=== PATIENT | male | born 2000 | race Two or more races ===

== ENCOUNTER 2024-03-27 16:11 | Outpatient (AMB) | payer OTHER, SELFPAY ==
[2024-03-27 16:13] VITALS: BP 96/60; PULSE 76; O2SAT 97; BMI 21.3
--- NOTE | 2024-03-27 16:13 | HO.NEPHOV ---
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 He has had this for few months. No nausea or vomiting. No diarrhea or constipation. No polyuria polydipsia no hematuria. PFSH Family History (Updated 03/27/24 @ 16:16 by CIELO Huynh) Maternal Grandmother Acute leukemia Social History (Updated 03/27/24 @ 16:16 by CIELO Huynh) Patient Tobacco Use Status: Never used Tobacco Use of substances other than those prescribed or required for medical reasons: No Physical Exam Vital Signs: Last Vital Signs Pulse 76 03/27/24 16:13 BP 96/60 03/27/24 16:13 Pulse Ox 97 03/27/24 16:13 Oxygen Delivery Method Room Air 03/27/24 16:13 BMI result Body Mass Index 21.3 Const General: comfortable Nutritional Appearance: well nourished Orientation/consciousness: patient oriented x3 HEENT Head: No normal to inspection Mouth: moist mucous membranes Neck Neck: Yes supple and Yes no JVD Resp Auscultation: clear to auscultation bilaterally, no rales and rub present Cardio Jugular venous distension: no JVD Palpation: no palpable S3 and no palpable S4 Heart sounds: no rubs GI Palpation (GI): Soft to palpation and nontender Percussion: No Fluid wave present General: Yes no CVA tenderness Back/Spine/Pelvis Back: no CVA tenderness Skin General skin exam: no rashes or lesions noted Neuro General: patient oriented x3 Extrem General: Yes no pedal edema and No clubbing Results Reviewed Results Reviewed: Urinalysis showed specific gravity 1.029 no blood or protein. Nephrology Results: No Data to Display Assessment & Plan Assessment & Plan (1) Left sided abdominal pain: Code(s): R10.9 - Unspecified abdominal pain Category: Medical Plan Young healthy male with left-sided abdominal pain. Exam was unremarkable. Urinalysis was benign except for elevated specific gravity. We will obtain renal ultrasonogram to assess the kidneys. Check renal panel and urine protein creatinine ratio. Orders: Orders US renal BI Today R10.9 - Unspecified abdominal pain UA and rflx microscopic 2 Weeks R10.9 - Unspecified abdominal pain Creatinine Urine 2 Weeks R10.9 - Unspecified abdominal pain Total Protein Urine Random 2 Weeks R10.9 - Unspecified abdominal pain Comprehensive Met. Panel 2 Weeks R10.9 - Unspecified abdominal pain Coding Level of Care Code New Pt Level 3 (99968) Diagnoses Left sided abdominal pain R10.9
== END 2024-03-27 16:42 | disposition home or self-care (01) ==
PROVIDERS: PCP Nurse Practitioner Family; Visit Provider Internal Medicine Hypertension Specialist
DX: R10.9 Unspecified abdominal pain (principal)
CPT/HCPCS: 99203

== ENCOUNTER → 2024-03-27 16:11 | Outpatient (BNVA) | payer OTHER, SELFPAY | PROVIDERS: PCP Nurse Practitioner Family; Visit Provider Internal Medicine Hypertension Specialist | DX: R10.9 Unspecified abdominal pain (principal) | CPT/HCPCS: 99202 ==

== ENCOUNTER 2024-04-12 11:33 | Outpatient (REF) | payer OTHER, SELFPAY ==
--- NOTE | ~2024-04-12 | US_ITS ---
EXAMINATION: US RETROPERITONEAL LIMITED (RENAL ONLY) CLINICAL INFORMATION: Unspecified abdominal pain. COMPARISON: None available. TECHNIQUE: Real-time imaging of the kidneys. Limited visualization due to bowel gas. FINDINGS: RIGHT KIDNEY: 10.1 x 6.0 x 5.4 cm (SAG x AP x TRV). No hydronephrosis. No renal calculi. Renal cortical thickness is normal. Limited visualization. LEFT KIDNEY: 10.1 x 4.3 x 4.7 cm (SAG x AP x TRV). No hydronephrosis. No renal calculi. Renal cortical thickness is normal. Limited visualization. US/US renal BI IMPRESSION: No hydronephrosis. No renal calculi. Renal cortical thickness is normal. Limited visualization.
== END 2024-04-12 11:34 | disposition home or self-care (01) ==
LOC: HO.US 11:33
PROVIDERS: PCP Nurse Practitioner Family; Visit Provider Internal Medicine Hypertension Specialist
DX: R10.9 Unspecified abdominal pain (principal)
CPT/HCPCS: 76775

== ENCOUNTER 2024-05-03 10:09 | Outpatient (AMB) | payer OTHER, SELFPAY ==
--- NOTE | 2024-05-03 10:14 | HO.NEPHOV_ITS ---
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 He has had this for few months. No nausea or vomiting. No diarrhea or constipation. No polyuria polydipsia no hematuria. 05/03/2024. Underwent renal ultrasonogram which was unremarkable. Did not undergo blood or urine tests. He continues to have vague abdominal symptoms but nothing specific PFSH Family History Maternal Grandmother Acute leukemia Social History Patient Tobacco Use Status: Never used Tobacco Physical Exam Vital Signs: Last Vital Signs Pulse 74 05/03/24 10:15 BP 100/60 05/03/24 10:15 Pulse Ox 98 05/03/24 10:15 Oxygen Delivery Method Room Air 05/03/24 10:15 BMI result Body Mass Index 21.0 Results Reviewed Results Reviewed: Renal ultrasonogram normal Nephrology Results: Renal US 04/12/24 Assessment & Plan Assessment & Plan (1) Left sided abdominal pain: Code(s): R10.9 - Unspecified abdominal pain Category: Medical Plan Young healthy male with left-sided abdominal pain. Exam was unremarkable. Urinalysis was benign except for elevated specific gravity. Renal ultrasonogram normal Check renal panel and urine protein creatinine ratio. Reordered If this is normal I will discharge him Orders: Orders Comprehensive Met. Panel Today R10.9 - Unspecified abdominal pain Creatinine Urine Today R10.9 - Unspecified abdominal pain UA and rflx microscopic Today R10.9 - Unspecified abdominal pain Total Protein Urine Random Today R10.9 - Unspecified abdominal pain Coding Level of Care Code Est Pt Level 3 (66978) Diagnoses Left sided abdominal pain R10.9
[2024-05-03 10:15] VITALS: BP 100/60; PULSE 74; O2SAT 98; BMI 21.0
== END 2024-05-03 10:31 | disposition home or self-care (01) ==
PROVIDERS: PCP Nurse Practitioner Family; Visit Provider Internal Medicine Hypertension Specialist
DX: R10.9 Unspecified abdominal pain (principal)
CPT/HCPCS: 99213

== ENCOUNTER → 2024-05-03 10:09 | Outpatient (BNVA) | payer OTHER, SELFPAY | PROVIDERS: PCP Nurse Practitioner Family; Visit Provider Internal Medicine Hypertension Specialist | DX: R10.9 Unspecified abdominal pain (principal) | CPT/HCPCS: 99212 ==

== ENCOUNTER 2024-05-03 10:39 | Outpatient (REF) | payer OTHER, SELFPAY ==
[2024-05-03 13:39] LABS: Alanine Aminotransferase 19 U/L (0-40); Albumin Level 4.8 g/dL (3.5-5.0); Alkaline Phosphatase 120 U/L (39-117); Anion Gap 10 (12-20); Aspartate Amino Transferase 15 U/L (5-37); Bilirubin Total 0.6 mg/dL (0.0-1.0); Blood Urea Nitrogen 14 mg/dL (9-16); Calcium 9.9 mg/dL (8.4-10.2); Carbon Dioxide 29 mmol/L (22-29); Chloride 106 mmol/L (96-108); Estimated Glomerular Filt Rate > 60; Potassium 3.9 mmol/L (3.3-5.1); Sodium 141 mmol/L (135-145); Total Protein 7.6 g/dL (6.5-8.0)
[2024-05-03 13:44] LABS: Glucose Random 48 mg/dL (60-115)
[2024-05-03 14:36] LABS: Appearance Urine Clear; Color Urine Yellow; Glucose Urine UA Negative (Negative); Leukocyte Esterase Urine Negative (Negative); Nitrite Urine Negative (Negative); Specific Gravity - Urine 1.015 (1.005-1.025); Urine Blood Negative (Negative); Urine Ketones Negative (Negative); Urine Protein Negative (Neg-Trace)
[2024-05-03 14:38] LABS: Creatinine Urine 84.88 mg/dL; Total Protein Urine Random < 7 mg/dL (<12)
== END 2024-05-03 10:40 | disposition home or self-care (01) ==
LOC: HO.10HDL 10:39
PROVIDERS: Visit Provider Internal Medicine Hypertension Specialist
DX: R10.9 Unspecified abdominal pain (principal)
CPT/HCPCS: 36415; 80053; 81003; 82570; 84156